=== PATIENT | female | born 1975 | race African-American/Black ===

== ENCOUNTER 2019-01-13 10:50 | Emergency (ER) | payer OTHER, MEDICAID ==
[~2019-01-13] VITALS: Ht 167.6 cm; Wt 84.0 kg
[2019-01-13] MEDS: SODIUM CHLORIDE 0.9% 1,000 ML IV ONE (11:50)
[2019-01-13] MEDS: ONDANSETRON HCL 4MG/2ML INJ IV ONE (12:00)
[2019-01-13] MEDS: MORPHINE SULFATE 4 MG/ML CPJ (NOT FOR IM USE) IV ONE (12:00)
[2019-01-13 12:03] LABS: BASOPHILS % 0.4 % (0.0-2.0); EOSINOPHILS % 0.4 % (0.0-5.0); HEMATOCRIT. 31.9 % (36.0-48.0); HEMOGLOBIN. 9.4 g/dL (12.0-16.0); LYMPHOCYTES % 27.8 % (20.0-50.0); MEAN CORPUSCULAR HEMOGLOBIN 20.5 pg (28.0-32.0); MEAN CORPUSCULAR VOLUME 69.4 fL (81.0-99.0); MEAN PLATELET VOLUME 10.4 fl (7.4-10.4); MONOCYTES % 5.8 % (2.0-8.0); NEUTROPHILS % 65.6 % (40.0-76.0); PLATELET 345 x1000/uL (130-400); RED BLOOD CELL COUNT 4.59 mill/uL (4.2-5.4); RED CELL DISTRIBUTION WIDTH 21.2 % (11.6-14.6)
[2019-01-13 12:09] LABS: CHLORIDE 109 mEq/L (98-107)
[2019-01-13 12:20] LABS: INR 0.9; PARTIAL THROMBOPLASTIN TIME 25.7 sec (23.4-31.0); PROTHROMBIN TIME 9.8 sec (9.6-11.0)
[2019-01-13 12:25] LABS: B-HCG QUANTITATIVE < 1 mIU/mL (<3)
[2019-01-13 12:34] LABS: CLARITY URINE CLEAR (CLEAR); COLOR URINE YELLOW (YELLOW); KETONES URINE NEGATIVE (NEGATIVE); LEUKOCYTE ESTERASE URINE NEGATIVE (NEGATIVE); NITRITE URINE NEGATIVE (NEGATIVE); OCCULT BLOOD URINE 3+ (NEGATIVE); PROTEIN URINE NEGATIVE (NEGATIVE); SPECIFIC GRAVITY URINE 1.019 (1.005-1.030); UROBILINOGEN URINE 0.2 E.U./dL (0.2-1.0)
[2019-01-13 12:44] LABS: PLATELET ESTIMATE NORMAL
[2019-01-13 12:54] LABS: HCG SCREEN NEGATIVE
[2019-01-13] MEDS: POTASSIUM CHLORIDE 20MEQ TABLET SR PO ONE (13:37)
[2019-01-13 14:36] VITALS: BP 114/65
== END 2019-01-13 19:08 | disposition short-term general hospital (02) ==
LOC: ER 10:50
DX: N93.8 Other specified abnormal uterine and vaginal bleeding (principal); R42 Dizziness and giddiness; D50.0 Iron deficiency anemia secondary to blood loss (chronic)
CPT/HCPCS: 36415; 76856; 80053; 81003; 81025; 84702; 84703; 85025; 85610; 85730; 86850; 86900; 86901; 93005; 96361; 96374; 96375; 99285; J2270; J2405; J7030